=== PATIENT | male | born 1975 | race Caucasian/White ===

== ENCOUNTER 2016-06-12 02:35 | Emergency (ER) | payer BC, OTHER ==
[2016-06-12 02:58] VITALS: BP 132/76; PULSE 76; TEMP 98.1; BMI 44.3
--- NOTE | 2016-06-12 03:20 | PDOC ---
*Physical Exam - Vital Signs Last Vital Signs Temp Pulse Resp BP Pulse Ox 98.1 F 76 20 132/76 99 06/12/16 02:57 06/12/16 02:57 06/12/16 02:57 06/12/16 02:57 06/12/16 02:57 Medical Decision Making - Medical Decision Making 06/12/16 03:20 agree with care from [facility] PHYSIC[facility] *DC/Admit/Observation/Transfer Diagnosis at time of Disposition: Foreign body in eyeball, left - Discharge Dispostion Disposition: HOME - Referrals Referrals: Levi Wong MD [Staff Physician] - - Patient Instructions Printed Discharge Instructions: DI for Foreign Body in the Eye Additional Instructions: Take medications as prescribed. Administer 2 drops to left eye every 4 hours while awake x 3 days, then 1 drop to left eye every 4 hours while awake x 2 days. Follow up with Dr. Wong or your personal Underwriting Account Representative as discussed within 48 hours. Return if symptoms worsen or any concerns for further evaluation. Print Language: INDONESIAN
[2016-06-12] MEDS ORDERED: TETRACAINE 0.5% OPHTH SOLN 2 ML BOTTLE ONE (03:21)
[2016-06-12] MEDS ORDERED: FLUORESCEIN NA 1 EA STRIP ONE (03:22)
[2016-06-12] MEDS ORDERED: GENTAMICIN SULFATE 0.3% OPHTHALMIC (EYE DROPS) 5ML BOTTLE OS ONE (03:35)
[2016-06-12] MEDS ORDERED: GENTAMICIN SULFATE 0.3% OPHTHALMIC (EYE DROPS) 5ML BOTTLE ONE (03:40)
--- NOTE | 2016-06-12 03:40 | PDOC ---
History of Present Illness - General Chief Complaint: Foreign Body (FB) Stated Complaint: EYE PROBLEM/FOREIGN OBJECT Time Seen by Provider: 06/12/16 03:06 History Source: Patient, Significant Other Exam Limitations: No Limitations - History of Present Illness Initial Comments: 06/12/16 03:36 40yo Male patient presents to ED c/o left eye pain, redness, and metal in eye. 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 He reports incident occurred at 4pm, when he got home his took a picture of his left eye that showed metal in it , so he came in for evaluation. Denies any vision changes, headache, or any other complaints at this time. Reports tetanus up to date. Past History - Travel Traveled outside of the country in the last 30 days: No Close contact w/someone who was outside of country & ill: No - Past Medical History Allergies/Adverse Reactions: Allergies Allergy/AdvReac Type Severity Reaction Status Date / Time No Known Allergies Allergy Verified 06/12/16 02:57 Home Medications: Ambulatory Orders No Home Medications 0 dose .ROUTE UTDICT 01/20/13 Anemia: No Asthma: No Cancer: No Cardiac Disorders: No CVA: No COPD: No CHF: No Dementia: No Diabetes: No GI Disorders: No Disorders: No HTN: No Hypercholesterolemia: No Liver Disease: No Seizures: No Thyroid Disease: No - Surgical History Orthopedic Surgery: Yes (BICEP TENDON REPAIR - LEFT ARM) - Immunization History Immunization Up to Date: Yes - Psycho/Social/Smoking Cessation Hx Suicidal Ideation: No Smoking Status: No Smoking History: Never smoked Have you smoked in the past 12 months: No Number of Cigarettes Smoked Daily: 0 Information on smoking cessation initiated: No Hx Alcohol Use: No Drug/Substance Use Hx: No Substance Use Type: None Hx Substance Use Treatment: No Review of Systems - Review of Systems Able to Perform ROS?: Yes Is the patient limited Eritrean proficient: No Constitutional: No: Chills, Fever HEENTM: Yes: Eye Pain, Other (Foreign Body in Left eye.). No: Blurred Vision, Double Vision, Ear Discharge, Nose Congestion, Throat Pain Respiratory: No: Cough, Orthopnea, Shortness of Breath, SOB with Exertion Cardiac (ROS): No: Chest Pain, Edema, Palpitations, Chest Tightness ABD/GI: No: Constipated, Diarrhea, Difficulty Swallowing, Nausea, Poor Appetite , Vomiting : No: Dysuria, Flank Pain, Hematuria Musculoskeletal: No: Back Pain, Neck Pain Integumentary: No: Bruising, Erythema, Rash, Sweating Neurological: No: Headache, Numbness, Paresthesia, Seizure, Tremors, Weakness, Unsteady Gait, Ataxia, Dizziness All Other Systems: Reviewed and Negative *Physical Exam - Vital Signs Last Vital Signs Temp Pulse Resp BP Pulse Ox 98.1 F 76 20 132/76 99 06/12/16 02:57 06/12/16 02:57 06/12/16 02:57 06/12/16 02:57 06/12/16 02:57 - Physical Exam General Appearance: Yes: Nourished, Appropriately Dressed. No: Apparent Distress, Mild Distress, Moderate Distress, Severe Distress HEENT: positive: EOMI, TIFFANIE, Normal ENT Inspection, Normal Voice, Symmetrical, TMs Normal, Pharynx Normal, Other (Foreign Body (Metal) noted to left eye with moderate erythema around metal.). negative: Nasal Congestion, Rhinorrhea, Sinus Tenderness, TM Bulging, TM Dull, TM Erythema Neck: positive: Trachea midline, Supple. negative: Decreased range of motion, Stridor Respiratory/Chest: positive: Lungs Clear, Normal Breath Sounds. negative: Accessory Muscle Use, Labored Respiration, Rapid RR Cardiovascular: positive: Regular Rhythm, Regular Rate. negative: Edema, JVD, Murmur Gastrointestinal/Abdominal: positive: Normal Bowel Sounds, Soft, Distended. negative: Guarding, Rebound, Tenderness Musculoskeletal: positive: Normal Inspection. negative: CVA Tenderness Extremity: positive: Normal Capillary Refill, Normal Inspection, Normal Range of Motion. negative: Tender, Pedal Edema, Swelling Integumentary: positive: Normal Color, Dry, Warm Neurologic: positive: order analyst II-XII NML intact, Fully Oriented, Alert, Normal Mood/ Affect, Normal Response, Motor Strength 5/5 Procedures - Eye Procedure Alcaine Drops Administered: Yes Eye Irrigated w/ Saline(Theodore Lens): No Antibiotic Oinment/Drps Admin: left eye Progress: 06/12/16 03:42 Unable to perform yeager lamp exam, unable to locate lamp. Tetracaine drps placed and foreign body removed with cotton tip applicator. *DC/Admit/Observation/Transfer Diagnosis at time of Disposition: Foreign body in eyeball, left Qualifiers: Encounter type: initial encounter Qualified Code(s): S05.52XA - Penetrating wound with foreign body of left eyeball, initial encounter - Discharge Dispostion Disposition: HOME Condition at time of disposition: Good Admit: No - Referrals Referrals: Levi Wong MD [Staff Physician] - - Patient Instructions Printed Discharge Instructions: DI for Foreign Body in the Eye Additional Instructions: Take medications as prescribed. Administer 2 drops to left eye every 4 hours while awake x 3 days, then 1 drop to left eye every 4 hours while awake x 2 days. Follow up with Dr. Wong or your personal Office Services Specialist as discussed within 48 hours. Return if symptoms worsen or any concerns for further evaluation. Print Language: ROMANSH
== END 2016-06-12 03:48 | disposition home or self-care (01) ==
LOC: JER 02:35
DX: S05.52XA Penetrating wound with foreign body of left eyeball, initial encounter (principal); Z18.10 Retained metal fragments, unspecified; W31.1XXA Contact with metalworking machines, initial encounter; Y93.H3 Activity, building and construction; Y92.63 Factory as the place of occurrence of the external cause; Y99.0 Civilian activity done for income or pay
CPT/HCPCS: 99281-25

== ENCOUNTER 2018-01-30 09:08 | Emergency (ER) | payer OTHER ==
[2018-01-30 09:16] VITALS: BP 162/84; PULSE 82; TEMP 97; BMI 47.2
--- NOTE | 2018-01-30 09:58 | PDOC ---
History of Present Illness - General Chief Complaint: Eye Problem Stated Complaint: EYE PROBLEM Time Seen by Provider: 01/30/18 09:43 History Source: Patient Exam Limitations: No Limitations Past History - Travel Traveled outside of the country in the last 30 days: No Close contact w/someone who was outside of country & ill: No - Past Medical History Allergies/Adverse Reactions: Allergies Allergy/AdvReac Type Severity Reaction Status Date / Time No Known Allergies Allergy Verified 01/30/18 09:16 Home Medications: Ambulatory Orders Doxycycline Monohydrate [Monodox] 100 mg PO Q12H 01/30/18 Ketorolac Tromethamine [Acular] 1 drop OP BID #50 drops 01/30/18 Ofloxacin 0.3% Ophth Soln [Ocuflox -] 5 ml OP ASDIR 01/30/18 Anemia: No Asthma: No Cancer: No Cardiac Disorders: No CVA: No COPD: No CHF: No Dementia: No Diabetes: No GI Disorders: No Disorders: No HTN: No Hypercholesterolemia: No Liver Disease: No Seizures: No Thyroid Disease: No - Surgical History Orthopedic Surgery: Yes (BICEP TENDON REPAIR - LEFT ARM) - Immunization History Immunization Up to Date: Yes - Suicide/Smoking/Psychosocial Hx Smoking Status: No Smoking History: Never smoked Have you smoked in the past 12 months: No Number of Cigarettes Smoked Daily: 0 Hx Alcohol Use: No Drug/Substance Use Hx: No Substance Use Type: None Hx Substance Use Treatment: No Review of Systems - Review of Systems Able to Perform ROS?: Yes Comments:: 01/30/18 09:58 CONSTITUTIONAL: Absent: fever, chills, diaphoresis, generalized weakness, malaise, loss of appetite HEENT: Absent: rhinorrhea, nasal congestion, throat pain, throat swelling, difficulty swallowing, mouth swelling, ear pain, eye pain, visual Changes CARDIOVASCULAR: Absent: chest pain, loss of consciousness, palpitations, irregular heart rate, peripheral edema RESPIRATORY: Absent: cough, shortness of breath, dyspnea with exertion, orthopnea, wheezing, stridor, hemoptysis GASTROINTESTINAL: Absent: abdominal pain, abdominal distension, nausea, vomiting, diarrhea, constipation, melena, hematochezia GENITOURINARY: Absent: dysuria, frequency, urgency, hesitancy, hematuria, flank pain, genital pain MUSCULOSKELETAL: Absent: myalgia, arthralgia, joint swelling SKIN: Absent: rash, itching, pallor HEMATOLOGIC/IMMUNOLOGIC: Absent: easy bleeding, easy bruising, lymphadenopathy, frequent infections ENDOCRINE: Absent: unexplained weight gain, unexplained weight loss, heat intolerance, cold intolerance NEUROLOGIC: Absent: headache, focal weakness or paresthesias, dizziness, unsteady gait, seizure, mental status changes, bladder or bowel incontinence PSYCHIATRIC: Absent: anxiety, depression, suicidal or homicidal ideation, hallucinations. Is the patient limited Surinamese proficient: No *Physical Exam - Vital Signs Last Vital Signs Temp Pulse Resp BP Pulse Ox 97 F L 82 18 162/84 97 01/30/18 09:11 01/30/18 09:11 01/30/18 09:11 01/30/18 09:11 01/30/18 09:11 - Physical Exam Comments: 01/30/18 09:58 GENERAL: Well developed, well nourished. Awake and alert. No acute distress. HEENT: Normocephalic, atraumatic. PERRLA, EOMI. No conjunctival pallor. Sclera are non- icteric. Moist mucous membranes. Oropharynx is clear. NECK: Supple. Full ROM. No JVD. Carotid pulses 2+ and symmetric, without bruits. No thyromegaly. No lymphadenopathy. CARDIOVASCULAR: Regular rate and rhythm. No murmurs, rubs, or gallops. Distal pulses are 2+ and symmetric. PULMONARY: No evidence of respiratory distress. Lungs clear to auscultation bilaterally. No wheezing, rales or rhonchi. ABDOMINAL: Soft. Non-tender. Non-distended. No rebound or guarding. No organomegaly. Normoactive bowel sounds. MUSCULOSKELETAL Normal range of motion at all joints. No bony deformities or tenderness. No CVA tenderness. EXTREMITIES: No cyanosis. No clubbing. No edema. No calf tenderness. SKIN: Warm and dry. Normal capillary refill. No rashes. No jaundice. NEUROLOGICAL: Alert, awake, appropriate. Cranial nerves 2-12 intact. No deficits to light touch and temperature in face, upper extremities and lower extremities. No motor deficits in the in face, upper extremities and lower extremities. Normoreflexic in the upper and lower extremities. Normal speech. Toes are down- going bilaterally. Gait is normal without ataxia. PSYCHIATRIC: Cooperative. Good eye contact. Appropriate mood and affect. *DC/Admit/Observation/Transfer Diagnosis at time of Disposition: Foreign body in eyeball, right Qualifiers: Encounter type: initial encounter Qualified Code(s): S05.51XA - Penetrating wound with foreign body of right eyeball, initial encounter - Discharge Dispostion Disposition: HOME Condition at time of disposition: Stable Decision to Admit order: No - Prescriptions Prescriptions: Ketorolac Tromethamine [Acular] 1 drop OP BID #50 drops - Referrals Referrals: Maximus Covarrubias MD [Staff Physician] - - Patient Instructions Printed Discharge Instructions: Parotitis, DI for Foreign Body in the Eye Additional Instructions: You had a piece of metal removed from your eye today You still have a rust ring. Please continue the ofloxicin drops that were previously prescribed to you. Use them every 2 hours You may take naproxen 500mg twice a day as needed for pain. You also use the NSAID eye drops for pain. Follow the dosing instructions You must follow up with ophthalmology on Thursday If your eye gets worse before Thursday go to either [facility] or 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 It also looks like you have swelling to your salivary glands Continue using the doxycycline that was prescribed to you Warm salt gargles may help. Also sour candies may help - Post Discharge Activity
[2018-01-30] MEDS ORDERED: FLUORESCEIN NA 1 EA STRIP ONE (10:05)
[2018-01-30] MEDS ORDERED: TETRACAINE 0.5% OPHTH SOLN 2 ML BOTTLE OD ONE (10:05)
[2018-01-30] MEDS ORDERED: FLUORESCEIN NA 1 EA STRIP OD ONE (10:05)
[2018-01-30] MEDS ORDERED: TETRACAINE 0.5% OPHTH SOLN 2 ML BOTTLE ONE (10:05)
== END 2018-01-30 11:46 | disposition home or self-care (01) ==
LOC: JERFT 09:08 → JER 09:08 → JERFT 11:46
PROC: 08C8XZZ Extirpation of Matter from Right Cornea, External Approach (ICD-10-PCS; principal; 2018-01-30)
DX: K11.20 Sialoadenitis, unspecified (principal); T15.01XA Foreign body in cornea, right eye, initial encounter; S05.51XA Penetrating wound with foreign body of right eyeball, initial encounter; X58.XXXA Exposure to other specified factors, initial encounter; Y93.89 Activity, other specified; Y92.89 Other specified places as the place of occurrence of the external cause; Y99.8 Other external cause status
CPT/HCPCS: 99281-25

== ENCOUNTER 2022-04-17 09:51 | Emergency (ER) | payer OTHER ==
[2022-04-17 10:08] VITALS: BP 177/113; PULSE 91; RESP 18; TEMP 98.2; BMI 46.6
[2022-04-17] MEDS ORDERED: LIDOCAINE HCL 1%, 10 MG/ML (20ML VIAL) ONE (13:09)
== END 2022-04-17 15:20 | disposition home or self-care (01) ==
LOC: JERFT 09:51 → JER 09:51 → JERFT 15:20
PROC: 0HQFXZZ Repair Right Hand Skin, External Approach (ICD-10-PCS; principal; 2022-04-17)
DX: S62.635B Displaced fracture of distal phalanx of left ring finger, initial encounter for open fracture (principal); W23.0XXA Caught, crushed, jammed, or pinched between moving objects, initial encounter
CPT/HCPCS: 73140-TC-LT-FY; 99283-25